=== PATIENT | female | born 1970 | race Caucasian/White ===

== ENCOUNTER → 2021-07-03 | Outpatient (CLI) | payer OTHER ==
[~2021-07-03] MED LIST: SODIUM CHLORIDE 0.9% 50 ML IVPB NR; SODIUM CHLORIDE 0.9% 500 ML 500 ML in EMPTY BAG 1 BAG IV PRN; SOTROVIMAB (EUA) 500 MG in SODIUM CHLORIDE 0.9% 100 ML IVPB NR
[2021-07-03 14:02] VITALS: BP 147/90; PULSE 77; RESP 16
== END ==
LOC: PROCWHC3 12:53
PROVIDERS: ATTEND Internal Medicine
DX: U07.1 COVID-19 (principal); E66.9 Obesity, unspecified; E11.9 Type 2 diabetes mellitus without complications; Z68.41 Body mass index [BMI] 40.0-44.9, adult
CPT/HCPCS: 96360; Q0247; M0245